=== PATIENT | female | born 1980 | race American Indian/Alaskan Native ===

== ENCOUNTER 2017-08-21 14:14 | Emergency (ER) | payer OTHER ==
[2017-08-21 14:14] VITALS: BMI 31.0
[2017-08-21 14:20] VITALS: O2SAT 100
[2017-08-21 15:12] LABS: SQUAMOUS EPITHIAL 2 /hpf (0-5); URINE BILIRUBIN NEGATIVE (NEGATIVE); URINE BLOOD 2+ (NEGATIVE); URINE CLARITY Clear (Clear); URINE COLOR Yellow (YELLOW); URINE GLUCOSE (UA) NORMAL (Normal); URINE LEUKOCYTE ESTERASE NEG Leu/uL (Negative); URINE PROTEIN NEGATIVE (NEGATIVE); URINE UROBILINOGEN NORMAL mg/dL (0.2-1.0)
[2017-08-21] MEDS ORDERED: Sodium Chloride 0.9% 1,000 ML IV ONE (15:15)
[2017-08-21] MEDS ORDERED: Sodium Chloride 0.9% 1,000 ML ONE (15:36)
[2017-08-21 15:40] LABS: BASO % 0.3 % (0.0-2.0); EOS % 0.8 % (0.0-4.0); HEMOGLOBIN 12.7 g/dL (11.0-16.0); LYMPH # 1.7 K/uL (1.0-4.3); LYMPH % 52.6 % (20.0-40.0); MEAN CORPUSCULAR HEMOGLOBIN 30.5 pg (27.0-31.0); MEAN CORPUSCULAR HGB CONC 34.2 g/dL (33.0-37.0); MEAN PLATELET VOLUME 8.6 fL (7.2-11.7); MONO # 0.3 K/uL (0.0-0.8); NEUT # 1.2 K/uL (1.8-7.0); NEUT % 37.3 % (50.0-75.0); NRBC % 0.1 % (0.0-2.0); RBC 4.18 Mil/uL (3.80-5.20); RED CELL DISTRIBUTION WIDTH 13.1 % (11.5-14.5)
[2017-08-21 15:42] LABS: WHITE BLOOD COUNT 3.3 K/uL (4.8-10.8)
[2017-08-21 15:47] LABS: HCG,QUALITATIVE URINE POSITIVE (NEGATIVE)
--- NOTE | 2017-08-21 15:51 | C.PDOC ---
History Of Present Illness 37yo female with no past medical history, , presents to ED with complaints of vaginal spotting since end of June and associated lower abdominal and lower back pain. She states she has a normal menstrual cycle with her period lasting 3 -4 days every month and reports she missed her menstrual period in the beginning of June. Patient states on 07/25 she had a test done at the [facility] which was positive. Since then, patient has noted blood upon wiping in the bathroom; she states there isn't enough bleeding to warrant a pad. She reports she did not have such symptoms during her previous pregnancies. She denies any fever, chills, chest pain, gross vaginal bleeding, and offers no other medical complaints. Time Seen by Provider: 08/21/17 14:42 Chief Complaint (Nursing): Female Genitourinary History Per: Patient History/Exam Limitations: no limitations Onset/Duration Of Symptoms: Persistent Current Symptoms Are (Timing): Still Present Severity: Mild Location Of Pain/Discomfort: Suprapubic Quality Of Discomfort: "Pain" Associated Symptoms: denies: Fever, Chills, Nausea, Vomiting Additional History Per: Patient Abnormal Vaginal Bleeding: Yes : 4 Para: 3 Past Medical History Reviewed: Historical Data, Nursing Documentation, Vital Signs Vital Signs: Last Vital Signs Temp 98.3 F 08/21/17 18:03 Pulse 55 L 08/21/17 18:03 Resp 18 08/21/17 18:03 BP 96/64 L 08/21/17 18:03 Pulse Ox 100 08/21/17 18:03 - Medical History PMH: No Chronic Diseases Surgical History: No Surg Hx - [facility] Procedures ARTIF RUPT MEMBRANES NEC (04/16/14) MANUAL ASSIST DELIV NEC (04/16/14) Family History: States: No Known Family Hx - Social History Hx Tobacco Use: No Hx Alcohol Use: No Hx Substance Use: No - Immunization History Hx Tetanus Toxoid Vaccination: No Hx Influenza Vaccination: No Review Of Systems Except As Marked, All Systems Reviewed And Found Negative. Constitutional: Negative for: Fever, Chills Cardiovascular: Negative for: Chest Pain Respiratory: Negative for: Shortness of Breath Gastrointestinal: Positive for: Abdominal Pain Genitourinary: Positive for: Dysuria, Vaginal Bleeding, Pelvic Pain. Negative for: Frequency Musculoskeletal: Positive for: Back Pain Physical Exam - Physical Exam Appears: Well, Non-toxic, No Acute Distress Skin: Normal Color, Warm, Dry Eye(s): bilateral: Normal Inspection Oral Mucosa: Moist Neck: Supple Cardiovascular: Rhythm Regular Respiratory: Normal Breath Sounds Gastrointestinal/Abdominal: Soft, Tenderness (mild suprapubic tenderness), No Mass, No Guarding, No Rebound Back: No CVA Tenderness, No Vertebral Tenderness, Paraspinal Tenderness (lumbar , bilateral) Extremity: Normal ROM, No Pedal Edema Neurological/Psych: Oriented x3 ED Course And Treatment - Laboratory Results Result Diagrams: 08/21/17 15:35 08/21/17 15:35 O2 Sat by Pulse Oximetry: 100 (ra) Pulse Ox Interpretation: Normal Progress Note: Blood work, UA, transvaginal US ordered and reviewed. Disposition - Disposition Disposition Time: 19:10 Condition: STABLE Forms: [facility] (Bur[place]ian) - Clinical Impression Clinical Impression: First trimester bleeding - Scribe Statement The provider has reviewed the documentation as recorded by the Scribe (Geri Mcdonough) Provider Attestation: All medical record entries made by the Scribe were at my direction and personally dictated by me. I have reviewed the chart and agree that the record accurately reflects my personal performance of the history, physical exam, medical decision making, and the department course for this patient. I have also personally directed, reviewed, and agree with the discharge instructions and disposition. Physician Patient Turnover Patient Signed Over To: Johnie Turk Handoff Comments: pending US result
[2017-08-21 15:53] LABS: ALB/GLOB RATIO 1.2 (1.0-2.1); ALBUMIN 4.2 g/dL (3.5-5.0); ALT/SGPT 9 U/L (9-52); AST/SGOT 22 U/L (14-36); BLOOD UREA NITROGEN 10 mg/dL (7-17); CALCIUM 8.9 mg/dl (8.6-10.4); GFR AFRICAN-AMERICAN > 60; GFR NON-AFRICAN AMERICAN > 60
[2017-08-21 18:04] VITALS: BP 96/64
[2017-08-21 19:51] VITALS: PULSE 60; RESP 17; TEMP 98
--- NOTE | 2017-08-22 10:14 | US ---
Pelvic ultrasound History: Pelvic pain and bleeding. . Comparison: None available. Technique: Real-time sonography was performed through the pelvis utilizing transvaginal technique. Findings Uterus: 13.6 x 6.2 x 8.6 centimeters. Heterogeneous echotexture. Anteverted. Suggestion of a mid fundal intramural lesion measuring 3.3 x 2.2 x 2.8 centimeters suggestive for a fibroid. Thickened endometrium measuring up to 17 millimeters with somewhat heterogeneous increased blood flow which is concerning for possible retained products conception. No evidence of intrauterine . Cervix is closed measuring 3.7 centimeters length. No free fluid in the pelvic cul-de-sac. Right ovary: 3.3 x 2.0 x 3.1 centimeters. Normal flow. Left ovary: 3.4 x 2.0 x 2.8 centimeters. Normal flow. Impression: 1. Positive test. No evidence of discrete intrauterine . In the setting of a positive test and no discrete intrauterine , considerations may include early versus missed versus ectopic . Clinical correlation. 2. Thickened heterogeneous endometrium with associated increased vascularity concerning for possible retained products of conception. Clinical correlation. These findings were preliminarily reported at 7:19 p.m. on 08/21/[address] Nichole Lennon from [employer] ([employer]
== END 2017-08-21 20:30 | disposition home or self-care (01) ==
LOC: C.ER 14:14
DX: O46.91 Antepartum hemorrhage, unspecified, first trimester (principal)
CPT/HCPCS: 76830; 76856; 80053; 81001; 84702; 84703; 85025; 86850; 86900; 96360; 99285; J7030

== ENCOUNTER 2018-08-05 22:22 | Emergency (ER) | payer OTHER ==
[2018-08-05 22:41] VITALS: BMI 30.7
[2018-08-05 22:43] VITALS: BP 129/81; RESP 18; O2SAT 100
--- NOTE | 2018-08-05 23:40 | C.PDOC ---
History Of Present Illness 38 year old female presents complaining of right shoulder pain radiating to the right elbow and right wrist pain radiating to the right elbow intermittently for the past 3 weeks. Denies trauma, weakness, or numbness. 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 Time Seen by Provider: 08/05/18 22:50 Chief Complaint (Nursing): Upper Extremity Problem/Injury History Per: Patient History/Exam Limitations: no limitations Onset/Duration Of Symptoms: Days (3 weeks), Intermittent Episodes Current Symptoms Are (Timing): Still Present Recent travel outside of the [place]: No Past Medical History Reviewed: Historical Data, Nursing Documentation, Vital Signs Vital Signs: Last Vital Signs Temp 98.2 F 08/05/18 22:42 Pulse 77 08/05/18 22:42 Resp 18 08/05/18 22:42 BP 129/81 08/05/18 22:42 Pulse Ox 100 08/05/18 22:42 Primary Care Provider: FAMILY PROVIDER,SPENCER - [facility] Procedures ARTIF RUPT MEMBRANES NEC (04/16/14) MANUAL ASSIST DELIV NEC (04/16/14) Family History: States: Unknown Family Hx - Social History Hx Tobacco Use: No Hx Alcohol Use: No Hx Substance Use: No - Immunization History Hx Tetanus Toxoid Vaccination: No Hx Influenza Vaccination: No Review Of Systems Musculoskeletal: Positive for: Arm Pain (Right) Neurological: Negative for: Weakness, Numbness Physical Exam - Physical Exam Appears: Non-toxic Skin: Normal Color, Warm Head: Atraumatic, Normacephalic Eye(s): bilateral: Normal Inspection Extremity: Capillary Refill (<2 seconds), No Deformity, No Swelling, Other (Pain with ROM of right shoulder and right wrist but ROM is full, no erythema.) Pulses: Left Radial: Normal, Right Radial: Normal Neurological/Psych: Oriented x3, Normal Speech, Normal Motor, Normal Sensation Gait: Steady ED Course And Treatment O2 Sat by Pulse Oximetry: 100 (Room air) Pulse Ox Interpretation: Normal Progress Note: Patient is resting comfortably in no acute distress, vitals are stable, will discharge home with Rx and instructions to follow up with PMD. 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 - Scribe Statement The provider has reviewed the documentation as recorded by the Scribangeline Palumbo All medical record entries made by the Priscillaibangeline were at my direction and personally dictated by me. I have reviewed the chart and agree that the record accurately reflects my personal performance of the history, physical exam, medical decision making, and the department course for this patient. I have also personally directed, reviewed, and agree with the discharge instructions and disposition.
[2018-08-05 23:55] VITALS: PULSE 62; TEMP 97.9
== END 2018-08-05 23:59 | disposition home or self-care (01) ==
LOC: C.ER 22:22
DX: M25.511 Pain in right shoulder (principal); M25.531 Pain in right wrist; M77.9 Enthesopathy, unspecified